=== PATIENT | female | born 1940 | race Caucasian/White ===

== ENCOUNTER 2023-09-01 00:40 | Inpatient (IN) | payer MEDICARE, BC, OTHER ==
[~2023-09-01] VITALS: Ht 160 cm; Wt 67.1 kg
[2023-09-01 01:56] LABS: BASOPHILS # (AUTO) 0.1 K/UL (0.0-0.2); EOSINOPHILS # (AUTO) 0.4 K/uL (0.0-0.7); EOSINOPHILS % (AUTO) 5.8 % (0.0-7.0); HEMATOCRIT 36.7 % (31.2-41.9); HEMOGLOBIN 12.5 g/dL (10.9-14.3); LYMPHOCYTES % (AUTO) 28.6 % (20.5-51.5); MEAN CORPUSCULAR HGB CONC 34 g/dL (32.3-35.6); MEAN CORPUSCULAR VOLUME 93.8 fL (75.5-95.3); MONOCYTES # (AUTO) 0.6 K/uL (0.1-1.30); MONOCYTES % (AUTO) 8.2 % (0.0-11.0); NEUTROPHILS % (AUTO) 56.4 % (38.5-71.5); PLATELET COUNT (AUTO) 242 K/uL (179-408); RED BLOOD CELL COUNT(AUTO) 3.91 MIL/uL (3.63-4.92); RED CELL DISTRIBUTION WIDTH 13.1 % (12.3-17.7); WHITE BLOOD COUNT (AUTO) 7.1 K/uL (3.8-11.8)
[2023-09-01 01:58] LABS: DIFFERENTIAL COMMENT 1
[2023-09-01 02:04] LABS: CALCIUM 8.7 mg/dL (8.5-10.1); CARBON DIOXIDE 29 mmol/L (21-32); CHLORIDE 106 mmol/L (98-107); CREATININE 0.7 mg/dL (0.6-1.3); GLUCOSE 102 mg/dL (74-106); POTASSIUM 3.8 mmol/L (3.5-5.1); SODIUM SERUM 143 mmol/L (136-145); UREA NITROGEN, BLOOD 19 mg/dL (7-18)
[2023-09-01 02:11] LABS: ETHANOL < 3 MG/DL (0-10)
[2023-09-01 02:17] LABS: THYROID STIMULATING HORMONE 3.044 mIU/mL (0.358-3.740)
[2023-09-01 02:18] LABS: ALANINE AMINOTRANSFERASE 24 U/L (14-59); ALBUMIN 3.1 g/dL (3.4-5.0); ALKALINE PHOSPHATASE 123 U/L (50-136); ASPARTATE AMINOTRANSFERASE 19 U/L (15-37); BILIRUBIN,TOTAL 0.2 mg/dL (0.2-1.0); TOTAL PROTEIN, SERUM 7.4 g/dL (6.4-8.2)
[2023-09-01] MEDS ORDERED: ASPIRIN 325 MG TABLET ONE (02:18)
[2023-09-01] MEDS: ASPIRIN 325 MG TABLET PO ONE (02:21)
[2023-09-01 02:27] LABS: ACETAMINOPHEN < 10.0 ug/mL (10-30)
[2023-09-01 02:55] LABS: BILIRUBIN,DIRECT < 0.1 mg/dL (0.0-0.2)
[2023-09-01 03:06] LABS: *BILIRUBIN,URIN NEGATIVE (NEGATIVE); *BLOOD, URINE NEGATIVE (NEGATIVE); *CLARITY,URINE CLEAR (CLEAR); *COLOR,URINE YELLOW (YELLOW); *KETONES,URINE NEGATIVE (NEGATIVE); *PROTEIN,URINE NEGATIVE (NEGATIVE); *UROBILINOGEN,URINE 0.2 E.U./dl (NORMAL); LEUKOCYTE ESTERASE ,URINE TRACE (NEGATIVE); NITRITE, URINE NEGATIVE (NEGATIVE); UGLUCOSE NEGATIVE (NEGATIVE)
[2023-09-01 03:20] LABS: *AMPHETAMINE, URINE NEGATIVE (NEGATIVE); *BARBITURATE, URINE NEGATIVE (NEGATIVE); *BENZODIAZEPINE, URINE NEGATIVE (NEGATIVE); *CANNABINOID, URINE NEGATIVE (NEGATIVE); *COCCAINE, URINE NEGATIVE (NEGATIVE); *OPIATE, URINE NEGATIVE (NEGATIVE); *PHENCYCLIDINE SCREEN,URINE NEGATIVE (NEGATIVE)
[2023-09-01 03:24] LABS: FENTANYL, URINE NEGATIVE (NEGATIVE)
[2023-09-01 03:40] LABS: BACTERIA,URINE FEW /HPF (NONE SEEN); RBC,URINE NONE SEEN /HPF (0-3); SQUAMOUS EPITHELIAL CELL,UR FEW /HPF (NONE SEEN); WBC,URINE 0-3 /HPF (0-3)
[2023-09-01 05:15] VITALS: BP 146/71; TEMP 97.7; O2SAT 96
[2023-09-01] MEDS ORDERED: MAGNESIUM HYDROXIDE 30 ML LIQUID UDC PO PRN (05:15)
[2023-09-01] MEDS ORDERED: MAG HYDROX/AL HYDROX/SIMETH 30 ML LIQUID UDC PO PRN (05:15)
[2023-09-01] MEDS ORDERED: TEMAZEPAM 7.5 MG CAPSULE PO PRN (05:15)
[2023-09-01] MEDS: BLOOD SUGAR DIAGNOSTIC 1 EACH STRIP VI ONE (05:29)
[2023-09-01 08:20] VITALS: BP 150/81; TEMP 98.2; O2SAT 96
[2023-09-01] MEDS ORDERED: CLOP75TA33 PO (11:33)
[2023-09-01] MEDS ORDERED: LEVO50TA8 PO (11:33)
[2023-09-01] MEDS ORDERED: CYCL10TA9 PO (11:34)
[2023-09-01] MEDS ORDERED: OXYM30SP26 NS (11:35)
[2023-09-01] MEDS ORDERED: LOSA100T31 PO (11:37)
[2023-09-01] MEDS ORDERED: ASPI-495 PO (11:38)
[2023-09-01] MEDS ORDERED: DULO20CA PO (11:38)
[2023-09-01] MEDS ORDERED: MELA5TAB20 PO (11:39)
[2023-09-01] MEDS ORDERED: CHOL100062 PO (11:40)
[2023-09-01] MEDS ORDERED: ATOR20TA PO (11:41)
[2023-09-01] MEDS ORDERED: ALBU2.5V38 IH (11:41)
[2023-09-01] MEDS ORDERED: METH1TAB PO (11:44)
[2023-09-01] MEDS: DIVALPROEX 125 MG TABLET.DR PO SCH (12:12)
[2023-09-01] MEDS: LORAZEPAM 0.5 MG TABLET PO PRN (12:12)
[2023-09-01] MEDS ORDERED: HOME MED MISCELLANEOUS XX SCH ×2 (12:45)
[2023-09-01] MEDS ORDERED: ALBUTEROL SULFATE 2.5 MG/3 ML NEBU IH PRN (12:45)
[2023-09-01 15:50] VITALS: BP 145/80; TEMP 98.2; O2SAT 98
[2023-09-01] MEDS: OXYMETAZOLINE NASAL 0.05% 15 ML SPRAY NS SCH (17:00)
[2023-09-01 19:57] VITALS: BP 151/69; TEMP 98.1; O2SAT 96
[2023-09-01] MEDS: ATORVASTATIN 20 MG TABLET PO SCH (20:25)
[2023-09-01] MEDS: MELATONIN 3 MG TABLET PO SCH (20:25)
[2023-09-02] MEDS: LEVOTHYROXINE SODIUM 50 MCG TABLET PO SCH (06:33)
[2023-09-02] MEDS: ACETAMINOPHEN 325 MG TABLET PO PRN (07:43)
[2023-09-02 08:06] VITALS: BP 136/57; TEMP 98.2; O2SAT 96
[2023-09-02] MEDS: CHOLECALCIFEROL 1,000 UNIT TABLET PO SCH (09:09)
[2023-09-02] MEDS: ASPIRIN EC 81 MG TABLET.DR PO SCH (09:09)
[2023-09-02] MEDS: LOSARTAN POTASSIUM 50 MG TABLET PO SCH (09:11)
[2023-09-02] MEDS: CLOPIDOGREL 75 MG TABLET PO SCH (09:11)
[2023-09-02 15:21] VITALS: BP 141/63; TEMP 98; O2SAT 98
[2023-09-02 20:11] VITALS: BP 132/62; TEMP 98.2; O2SAT 96
[2023-09-03 07:30] VITALS: BP 145/61; TEMP 98.2; O2SAT 96
[2023-09-03] MEDS: ESCITALOPRAM OXALATE 10 MG TABLET PO SCH (12:05)
[2023-09-03 16:06] VITALS: BP 154/67; TEMP 98; O2SAT 98
[2023-09-03 21:05] VITALS: BP 140/60; TEMP 97.9; O2SAT 98
[2023-09-04 07:40] VITALS: BP 150/68; TEMP 98.1; O2SAT 99
[2023-09-04 16:34] VITALS: BP 152/67; TEMP 98; O2SAT 96
[2023-09-04 20:00] VITALS: BP 108/58; TEMP 98; O2SAT 99
[2023-09-05 08:10] VITALS: BP 124/60; TEMP 98.2; O2SAT 98
[2023-09-05 16:51] VITALS: BP 121/65; TEMP 98.1; O2SAT 98
[2023-09-05 20:07] VITALS: BP 126/62; TEMP 98.2; O2SAT 96
[2023-09-06 07:41] VITALS: BP 123/52; TEMP 98.1; O2SAT 98
[2023-09-06 16:10] VITALS: BP 145/95; TEMP 98; O2SAT 98
[2023-09-06] MEDS: DIVALPROEX 125 MG TABLET.DR PO SCH (17:36)
[2023-09-06 20:07] VITALS: BP 124/58; TEMP 98.1; O2SAT 96
[2023-09-07 08:31] VITALS: BP 120/54; TEMP 98; O2SAT 98
[2023-09-07 15:35] VITALS: BP 131/57; TEMP 98; O2SAT 93
[2023-09-07 20:30] VITALS: BP 115/59; TEMP 98; O2SAT 98
[2023-09-08 07:59] VITALS: BP 121/65; TEMP 98; O2SAT 99
[2023-09-08 13:06] LABS: FOLATE (FOLIC ACID), SERUM 17.7 ng/mL (>3.0)
[2023-09-08 15:35] VITALS: BP 104/48; TEMP 98; O2SAT 98
[2023-09-08 20:00] VITALS: BP 124/69; TEMP 97.5; O2SAT 95
[2023-09-09 07:30] VITALS: BP 126/56; TEMP 98; O2SAT 94
[2023-09-09 15:30] VITALS: BP 117/54; TEMP 98; O2SAT 99
[2023-09-09 20:00] VITALS: BP 103/51; TEMP 97.6; O2SAT 95
[2023-09-10 07:30] VITALS: BP 118/55; TEMP 98; O2SAT 98
[2023-09-10 15:14] VITALS: BP 125/55; TEMP 98; O2SAT 96
[2023-09-10 20:00] VITALS: BP 156/74; TEMP 98.1; O2SAT 99
[2023-09-11 07:59] VITALS: BP 120/48; TEMP 98.2; O2SAT 98
[2023-09-11 16:56] VITALS: BP 138/63; TEMP 98; O2SAT 98
[2023-09-11 20:00] VITALS: BP 121/56; TEMP 98; O2SAT 98
[2023-09-12 08:47] VITALS: BP 137/68; TEMP 98.1; O2SAT 98
[2023-09-12 16:13] VITALS: BP 113/57; TEMP 98; O2SAT 98
[2023-09-12 20:17] VITALS: BP 124/64; TEMP 98.1; O2SAT 99
[2023-09-13 07:56] VITALS: BP 127/52; TEMP 98; O2SAT 98
[2023-09-13 16:40] VITALS: BP 108/54; TEMP 98; O2SAT 98
[2023-09-13 19:55] VITALS: BP 122/66; TEMP 98.1; O2SAT 94
[2023-09-14 07:30] VITALS: BP 116/57; TEMP 98; O2SAT 96
[2023-09-14] MEDS: ESCITALOPRAM OXALATE 10 MG TABLET PO SCH (09:30)
[2023-09-14 15:19] VITALS: BP 116/71; TEMP 98; O2SAT 96
[2023-09-14 20:12] VITALS: BP 124/64; TEMP 98.2; O2SAT 95
[2023-09-15 07:54] VITALS: BP 122/60; TEMP 98; O2SAT 96
[2023-09-15 15:17] VITALS: BP 102/45; TEMP 98; O2SAT 99
[2023-09-15 20:00] VITALS: BP 124/53; TEMP 97.9; O2SAT 93
[2023-09-16 08:05] VITALS: BP 136/59; TEMP 97.8; O2SAT 98
[2023-09-16 15:31] VITALS: BP 126/58; TEMP 98; O2SAT 96
[2023-09-16 20:00] VITALS: BP 134/67; TEMP 98; O2SAT 95
[2023-09-17] MEDS: CYCLOBENZAPRINE HCL 10 MG TABLET PO PRN (01:15)
[2023-09-17 07:58] LABS: CALCIUM 8.6 mg/dL (8.5-10.1); CREATININE 0.9 mg/dL (0.6-1.3); POTASSIUM 4.3 mmol/L (3.5-5.1)
[2023-09-17 07:59] VITALS: BP 122/51; TEMP 98.4; O2SAT 96
[2023-09-17 08:29] VITALS: BP 122/51
== END 2023-09-17 14:45 | DRG 885 ==
LOC: ER 00:51 → GPS 03:26
PROVIDERS: ADMIT Psychiatry & Neurology Psychosomatic Medicine; ATTEND Nurse Practitioner Acute Care
DX: F39 Unspecified mood [affective] disorder (principal); R45.851 Suicidal ideations; F03.93 Unspecified dementia, unspecified severity, with mood disturbance; E44.1 Mild protein-calorie malnutrition; R79.89 Other specified abnormal findings of blood chemistry; E03.9 Hypothyroidism, unspecified; Z68.26 Body mass index [BMI] 26.0-26.9, adult; I10 Essential (primary) hypertension; Z88.0 Allergy status to penicillin; Z90.49 Acquired absence of other specified parts of digestive tract; E88.09 Other disorders of plasma-protein metabolism, not elsewhere classified
CPT/HCPCS: 36415; 70450; 80164; 82746; 83921; 84443; 85025; G0480